=== PATIENT | male | born 1985 | race Two or more races ===

== ENCOUNTER 2023-12-26 14:26 | Emergency (ER) | payer OTHER ==
[~2023-12-26] VITALS: Ht 172.7 cm; Wt 108.9 kg
[2023-12-26] MEDS ORDERED: CEFTRIAXONE SODIUM 1,000 MG VIAL IM STA (15:16)
[2023-12-26] MEDS ORDERED: ORPHENADRINE CITRATE 30 MG/ML AMPUL IM STA (15:18)
[2023-12-26] MEDS ORDERED: DEXAMETHASONE SODIUM PHOSPHATE 4 MG/ML VIAL IM STA (15:18)
[2023-12-26] MEDS ORDERED: AUGMENTIN XR 11 EACH PO (15:30)
== END 2023-12-26 17:32 | disposition home or self-care (01) ==
LOC: ER 14:27
DX: K04.7 Periapical abscess without sinus (principal)